=== PATIENT | male | born 1945 | race Caucasian/White ===

== ENCOUNTER 2023-07-24 04:02 | Day surgery (SDC) | payer OTHER, BC ==
[2023-07-18 09:45] VITALS: BMI 22.4
[2023-07-24 08:47] VITALS: TEMP 98.2
[2023-07-24 09:01] VITALS: RESP 20
[2023-07-24 09:17] VITALS: BP 108/65; PULSE 80
== END 2023-07-24 09:34 | disposition home or self-care (01) ==
LOC: JASU-ENDO 04:02
PROVIDERS: ATTEND Internal Medicine Gastroenterology
PROC: 0DB78ZX Excision of Stomach, Pylorus, Via Natural or Artificial Opening Endoscopic, Diagnostic (ICD-10-PCS; 2023-07-24)
PROC: 0DB68ZX Excision of Stomach, Via Natural or Artificial Opening Endoscopic, Diagnostic (ICD-10-PCS; 2023-07-24)
PROC: 0DB48ZX Excision of Esophagogastric Junction, Via Natural or Artificial Opening Endoscopic, Diagnostic (ICD-10-PCS; 2023-07-24)
PROC: 0DB98ZX Excision of Duodenum, Via Natural or Artificial Opening Endoscopic, Diagnostic (ICD-10-PCS; principal; 2023-07-24 08:00)
DX: K29.50 Unspecified chronic gastritis without bleeding (principal); K44.9 Diaphragmatic hernia without obstruction or gangrene; K21.00 Gastro-esophageal reflux disease with esophagitis, without bleeding; K31.A0 Gastric intestinal metaplasia, unspecified
CPT/HCPCS: 88305-TC; 88342-TC